=== PATIENT | female | born 1990 | race Caucasian/White ===

== ENCOUNTER 2018-05-06 07:05 | Day surgery (SDC) | payer OTHER ==
[~2018-05-06] VITALS: Ht 157.5 cm; Wt 36.3 kg
[2018-05-06 07:57] VITALS: BP 129/74
[2018-05-06 10:58] VITALS: BP 120/56
== END 2018-05-06 11:50 | disposition home or self-care (01) ==
LOC: GI 07:05 → OR 08:30 → GI 08:30
PROVIDERS: Internal Medicine Gastroenterology
PROC: 0DJD8ZZ Inspection of Lower Intestinal Tract, Via Natural or Artificial Opening Endoscopic (ICD-10-PCS; principal; 2018-05-06 08:30)
DX: R19.4 Change in bowel habit (principal); Z80.0 Family history of malignant neoplasm of digestive organs
CPT/HCPCS: 45378; J1200; J1610; J2250; J2310; J3010; J3490

== ENCOUNTER 2018-11-04 04:30 | Emergency (ER) | payer OTHER ==
[~2018-11-04] VITALS: Ht 157.5 cm; Wt 36.3 kg
[2018-11-04 04:37] VITALS: Ht 157.5 cm; Wt 36.3 kg
[2018-11-04 06:27] VITALS: BP 111/61
== END 2018-11-04 06:27 | disposition home or self-care (01) ==
LOC: ED 04:30
DX: N39.0 Urinary tract infection, site not specified (principal); M79.7 Fibromyalgia; F32.9 Major depressive disorder, single episode, unspecified; Z91.041 Radiographic dye allergy status
CPT/HCPCS: J1885; Q0092

== ENCOUNTER 2019-03-04 08:20 | Emergency (ER) | payer OTHER ==
[~2019-03-04] VITALS: Ht 157.5 cm; Wt 37.6 kg
[2019-03-04 08:24] VITALS: Ht 157.5 cm; Wt 37.6 kg
[2019-03-04 09:49] VITALS: BP 138/87
== END 2019-03-04 11:15 | disposition home or self-care (01) ==
LOC: ED 08:20
DX: J02.9 Acute pharyngitis, unspecified (principal)
CPT/HCPCS: 87804